=== PATIENT | male | born 1960 | race Caucasian/White ===

== ENCOUNTER 2016-12-01 11:01 | Outpatient (CLI) | payer OTHER ==
--- NOTE | 2016-12-01 13:13 | RAD ---
LUMBAR SPINE THREE VIEWS: History: 56-year-old male with abnormal lower extremity reflexes. FINDINGS: Mild disc osteophytosis and lower lumbar spine facet arthrosis. No evidence for acute fracture or di slocation or significant malalignment. IMPRESSION: Evidence for spondylosis. No acute fracture or dislocation. POS: TOYIN
== END 2016-12-01 11:02 | disposition home or self-care (01) ==
LOC: RAD-FRANK 11:01
PROVIDERS: ATTEND Nurse Practitioner Family
DX: E66.9 Obesity, unspecified (principal); R29.2 Abnormal reflex; M47.816 Spondylosis without myelopathy or radiculopathy, lumbar region
CPT/HCPCS: 72100

== ENCOUNTER 2018-02-02 12:29 | Outpatient (CLI) | payer BC ==
--- NOTE | 2018-02-02 13:42 | ULT ---
VENOUS DOPPLER ULTRASOUND OF THE RIGHT LOWER EXTREMITY: Date: 02/02/18 HISTORY: Right leg pain and edema. TECHNIQUE: Caldwell scale ultrasound with color flow and spectral Doppler imaging of the deep venous system of the r ight lower extremity performed. FINDINGS: There is good flow, compression, and augmentation noted in the right common femoral, femoral, deep fe moral, popliteal, posterior tibial, and greater saphenous veins. IMPRESSION: No evidence of deep venous thrombosis in the right lower extremity. POS: OFF
--- NOTE | 2018-02-02 14:06 | ULT ---
RIGHT LOWER EXTREMITY ARTERIAL ULTRASOUND WITH DOPPLER: HISTORY: Right foot pain x3-4 months. COMPARISON: None. TECHNIQUE: Caldwell-scale, color-flow, Doppler imaging, and spectral wave-form analysis was performed of the right l ower extremity arterial system. FINDINGS: There is triphasic flow in the common femoral artery, the profunda femoral artery, the proximal mid a nd distal superficial femoral artery. the popliteal, the anterior tibial artery, the posterior tibia l artery, and the dorsalis pedis artery. ARTERY VELOCITY COMMON FEMORAL ARTERY: 80.9 cm per second PROFUNDA FEMORAL ARTERY: 56.3 cm per second PROXIMAL SUPERFICIAL FEMORAL ARTERY: 84.6 cm per second MID SUPERFICIAL FEMORAL ARTERY: 70.3 cm per second DISTAL SUPERFICIAL FEMORAL ARTERY: 42.5 cm per second POPLITEAL ARTERY: 51.8 cm per second ANTERIOR TIBIAL ARTERY: 72.6 cm per second POSTERIOR TIBIAL ARTERY: 78.1 cm per second DORSALIS PEDIS ARTERY: 60.2 cm per second IMPRESSION: No sonographic evidence of significant stenosis in the right lower extremity arterial system. POS: TOYIN
== END 2018-02-02 12:30 | disposition home or self-care (01) ==
LOC: ULT 12:29
PROVIDERS: ATTEND Nurse Practitioner Family
DX: M79.671 Pain in right foot (principal); E11.65 Type 2 diabetes mellitus with hyperglycemia; L03.115 Cellulitis of right lower limb; M1A.09X0 Idiopathic chronic gout, multiple sites, without tophus (tophi); E78.5 Hyperlipidemia, unspecified
CPT/HCPCS: 93923

== ENCOUNTER 2020-11-20 14:34 | Outpatient (CLI) | payer BC | END 2020-11-20 14:35 | disposition home or self-care (01) | LOC: ULT 14:34 | PROVIDERS: ATTEND Nurse Practitioner Family | DX: R10.31 Right lower quadrant pain (principal) | CPT/HCPCS: 76705 ==

== ENCOUNTER 2021-03-02 14:32 | Outpatient (CLI) | payer BC ==
[2021-03-03 17:56] LABS: SARS-CoV-2 PCR by NAA Not Detected (NotDetected)
== END 2021-03-02 14:33 | disposition home or self-care (01) ==
LOC: LABBT 14:32
PROVIDERS: ATTEND Specialist
DX: Z01.818 Encounter for other preprocedural examination (principal); K40.90 Unilateral inguinal hernia, without obstruction or gangrene, not specified as recurrent; Z20.822 Contact with and (suspected) exposure to COVID-19
CPT/HCPCS: 93005; 93010; U0003; U0005

== ENCOUNTER 2021-03-05 12:04 | Day surgery (SDC) | payer BC ==
[2021-03-02 13:15] VITALS: BMI 31.4
[2021-03-05] MEDS ORDERED: Ketorolac Tromethamine 30 MG/ML VIAL ONE (12:30)
[2021-03-05] MEDS ORDERED: Acetaminophen 500 MG TAB ONE (12:30)
[2021-03-05] MEDS ORDERED: Fentanyl 100 MCG/2 ML VIAL ONE ×2 (13:51→14:58)
[2021-03-05] MEDS ORDERED: Dexmedetomidine 200 MCG/2 ML VIAL ONE (13:52)
[2021-03-05] MEDS ORDERED: Xylocaine 1% w/ Epi 1:100K 10 ML VIAL ONE (13:59)
[2021-03-05] MEDS ORDERED: Bupivacaine 0.25% HCL 30 ML VIAL ONE (13:59)
[2021-03-05] MEDS ORDERED: ceFAZolin 2 GM/Dextrose 50 ML IVPB ONE (14:09)
[2021-03-05] MEDS ORDERED: Lidocaine 1% PF 5 ML VIAL ONE (14:26)
[2021-03-05] MEDS ORDERED: Glycopyrrolate 0.2 MG/ML 5 ML SYRINGE ONE (14:26)
[2021-03-05] MEDS ORDERED: PROPOFOL 200 MG/20 ML VIAL ONE (14:26)
[2021-03-05] MEDS ORDERED: Ondansetron PF 4 MG/2 ML Vial ONE (14:26)
[2021-03-05] MEDS ORDERED: Labetalol HCl 100 MG/20 ML VIAL ONE (14:26)
[2021-03-05] MEDS ORDERED: Rocuronium Bromide 10 MG/ML (10ML VIAL) ONE (14:26)
== END 2021-03-05 18:24 | disposition home or self-care (01) ==
LOC: SDC 12:04
PROVIDERS: ATTEND Specialist
PROC: 0YU54JZ Supplement Right Inguinal Region with Synthetic Substitute, Percutaneous Endoscopic Approach (ICD-10-PCS; principal; 2021-03-05)
DX: K40.90 Unilateral inguinal hernia, without obstruction or gangrene, not specified as recurrent (principal); D17.6 Benign lipomatous neoplasm of spermatic cord; K42.9 Umbilical hernia without obstruction or gangrene; I10 Essential (primary) hypertension; E78.5 Hyperlipidemia, unspecified; G47.33 Obstructive sleep apnea (adult) (pediatric); M19.90 Unspecified osteoarthritis, unspecified site; E11.9 Type 2 diabetes mellitus without complications; M1A.9XX0 Chronic gout, unspecified, without tophus (tophi); Z79.82 Long term (current) use of aspirin; Z79.84 Long term (current) use of oral hypoglycemic drugs; Z79.899 Other long term (current) drug therapy
CPT/HCPCS: J0690; J1885; J2405; J2704; J3010; S0020